=== PATIENT | female | born 1975 | race Caucasian/White ===

== ENCOUNTER 2016-07-09 11:50 | Emergency (ER) | payer OTHER ==
--- NOTE | ~2016-07-09 | CR181 ---
[facility] A Service of [facility] & [facility] RADIOLOGY TEXT RESULTS PATIENT: SANJU ORTEGA LOCATION: [facility] : 71 UNIT #: [id number] AGE: [address]: Jerson Sahni MD SEX: F ORDER DR: [id number] [facility] [address] [place], [place] [address] [id number] MR#: [id number] Acc #: [id number] NAME: SANJU ORTEGA : 1975 SEX: F STUDY DATE/TIME: 07/09/2016 12:18 UNIT: [facility] ROOM: STUDY DESCRIPTION: CR Lumbar Spine 2 or 3 Views Attending Physician: Jerson Sahni M.D. Ordering Physician: Jerson Sahni M.D. Primary Care Physician: Radhika Edwards A.P.R.N. MEDICAL IMAGING REPORT This report is preliminary unless electronic signature is present EXAM Lumbosacral spine, total of 3 views, 07/09/2016. COMPARISON 10/16/2014 HISTORY Low back pain, left flank pain for 3 days radiating to both legs. FINDINGS AP, lateral, and spot views are submitted. Lumbar alignment is normal. Disc space and vertebral body height is maintained. No fractures are identified. CONCLUSION Negative lumbosacral spine. Dictated by... Lopez Patel M.D. THIS IS AN ELECTRONICALLY VERIFIED REPORT Lopez Patel M.D. at 07/10/2016 4:26 PM DA/kelsi TD: 07/09/2016 14:30 JOB #: [id number] MEDICAL IMAGING REPORT Page 1 of 1 COPY
[2016-07-09 11:39] LABS: URINE SOURCE CLEAN CATCH
[2016-07-09 11:44] LABS: URINE APPEARANCE TURBID; URINE BLOOD 2+ (NEG); URINE COLOR DK YELLOW; URINE GLUCOSE NEG (NEG); URINE KETONE NEG (NEG); URINE LEUKOCYTE ESTERASE 3+ (NEG); URINE NITRATE POS (NEG); URINE PROTEIN 2+ (NEG); URINE SPECIFIC GRAVITY 1.018 (1.003-1.035)
[2016-07-09 11:46] LABS: CULTURE INDICATED? YES; URINE SQUAMOUS EPITHELIAL CELL MOD /[HPF]; UWBCS1 AUWI INNUM (0-5)
[~2016-07-09 11:50] MED LIST: AMITRIPTYLINE H50 MG PO; BACTRIM DS TABL1 TA1; BACTRIM DS TABL1 TA1 PO; BACTRIM DS TABL1 TAB PO; EPIVIR 10 MG/ML; EPIVIR150 MG PO; EPIVIR300 MG PO; FAMOTIDINE PO; FLEXERIL PO; FLEXERIL10 MG PO; IBUPROFEN PO; KEFLEX PO; NILSTAT1 ML DOB; NORVIR100 MG PO; ORUDIS75 M1 PO; PRILOSEC20 MG DOB; PYRIDIUM PO; RA; RAYATAZ PO; REYATAZ300 MG PO; TYLENOL #3 PO; ZERIT PO; ZITHROMAX PO; ZITHROMAX1 G/PKT PO
[2016-07-09 12:04] LABS: URINE BILIRUBIN NEG (NEG)
[2016-07-09 12:06] LABS: URINE BACTERIA AUWI 2+ (NEGATIVE)
== END 2016-07-09 14:17 | disposition home or self-care (01) ==
LOC: CED 11:50
DX: N39.0 Urinary tract infection, site not specified (principal); I10 Essential (primary) hypertension; F17.210 Nicotine dependence, cigarettes, uncomplicated
CPT/HCPCS: 72100; 81003; 82375; 84703; 87077; 87086; 87186; 96372; 99283; J1885